=== PATIENT | female | born 1975 | race Caucasian/White ===

== ENCOUNTER 2020-09-21 10:32 | Emergency (ER) | payer MEDICAID, OTHER ==
[~2020-09-21] VITALS: Ht 180.3 cm; Wt 116.0 kg
[2020-09-21] MEDS ORDERED: ENALAPRIL 2.5MG TABLET PO ONE (11:15)
[2020-09-21] MEDS ORDERED: ASPIRIN 81MG TABLET PO ONE (11:15)
[2020-09-21 11:21] LABS: EOSINOPHILS % 0.9 % (0.0-5.0); HEMATOCRIT. 42.6 % (36.0-48.0); HEMOGLOBIN. 14.1 g/dL (12.0-16.0); LYMPHOCYTES % 33.8 % (20.0-50.0); MEAN CORPUSCULAR HEMOGLOBIN 27.8 pg (28.0-32.0); MEAN PLATELET VOLUME 8.5 fl (7.4-10.4); MONOCYTES % 10.8 % (2.0-8.0); NEUTROPHILS % 53.5 % (40.0-76.0); PLATELET 339 x1000/uL (130-400); RED BLOOD CELL COUNT 5.07 mill/uL (4.2-5.4); RED CELL DISTRIBUTION WIDTH 13.6 % (11.6-14.6)
[2020-09-21 11:28] LABS: CHLORIDE 105 mEq/L (98-107)
[2020-09-21 11:32] LABS: ETHANOL BLOOD < 10 mg/dL
[2020-09-21 11:35] LABS: HCG SCREEN NEGATIVE
[2020-09-21 11:49] LABS: *BARBITURATES SCREEN URINE NEGATIVE (NEGATIVE)
[2020-09-21 11:50] LABS: *AMPHETAMINES SCREEN URINE NEGATIVE (NEGATIVE); *BENZODIAZEPINES SCREEN URINE NEGATIVE (NEGATIVE); CANNABINOID URINE SCREEN NEGATIVE (NEGATIVE); OPIATES URINE SCREEN NEGATIVE (NEGATIVE)
[2020-09-21 11:56] LABS: PHENCYCLIDINE URINE SCREEN NEGATIVE (NEGATIVE)
[2020-09-21 11:59] LABS: METHADONE URINE SCREEN NEGATIVE (NEGATIVE)
[2020-09-21 12:01] LABS: *COCAINE SCREEN URINE NEGATIVE (NEGATIVE)
[2020-09-21] MEDS ORDERED: ENAL2.5T17 MT (13:36)
[2020-09-21] MEDS ORDERED: ASPI-1497 MT (13:36)
[2020-09-21 13:57] VITALS: BP 143/79
== END 2020-09-21 13:57 | disposition home or self-care (01) ==
LOC: ER 10:32 → CANBEDREQ 15:40
DX: R07.89 Other chest pain (principal); R51.9 Headache, unspecified; I10 Essential (primary) hypertension; Z88.0 Allergy status to penicillin
CPT/HCPCS: 36415; 70450; 71045; 80053; 80305; 80320; 81025; 83690; 83880; 84484; 84703; 85025; 93005; 99285; Z7610; G0480